=== PATIENT | female | born 1995 | race American Indian/Alaskan Native ===

== ENCOUNTER 2024-01-30 18:36 | Emergency (ER) | payer MEDICAID ==
[~2024-01-30] VITALS: Ht 154.9 cm; Wt 87.3 kg
[2024-01-30] MEDS ORDERED: THIAMINE HCL 100 MG,FOLIC ACID 1 MG,MULTIVITAMINS 10 ML in SODIUM CHLORIDE 0.9% 1,000 ML IV ONE (19:15)
[2024-01-30] MEDS ORDERED: ondansetron HCL 4 MG/2 ML VIAL IV ONE (19:15)
[2024-01-30] MEDS ORDERED: diazePAM 5 MG TAB PO ONE (19:15)
[2024-01-30] MEDS ORDERED: FOLIC ACID 1 MG/0.2 ML ML ONE (19:17)
[2024-01-30 19:23] LABS: BASOPHILS 3.5 % (0-2); EOSINOPHILS 2.5 % (0-6); HEMATOCRIT 38.4 % (35.0-50.0); LYMPHOCYTES 14.4 % (24-44); MCH 33.9 (27-36); MCHC 33.9 g/dl (30-36); MCV 99.8 fl (81-99); MONOCYTES 4.5 % (0-12); NEUTROPHILS 75.1 % (39-80); PLATELET COUNT 277 K/uL (140-440); RBC 3.85 M/ul (4.3-5.7); RDW 13.1 (10.5-15.0)
[2024-01-30 19:30] LABS: INR 0.96 (0.80-1.30); PROTIME 12.4 Sec (11.2-14.2)
[2024-01-30 19:39] LABS: ALBUMIN/GLOBULIN RATIO 0.89 (1.1-2.4); ANION GAP 17.5 (7-21); BUN/CREATININE RATIO 6.06 (6.0-28.6); CALCIUM 8.5 mg/dL (8.5-10.1); CREATININE, SERUM 0.66 mg/dL (0.55-1.02); MAGNESIUM 2.2 mg/dL (1.8-2.4); PHOSPHORUS, INORGANIC 3.4 mg/dL (2.5-4.9); POTASSIUM 3.5 mmol/L (3.5-5.1); PROTEIN, TOTAL 8.5 g/dL (6.4-8.2)
[2024-01-30] MEDS ORDERED: LORazepam 2 MG/ML VIAL IV ONE (20:45)
[2024-01-30] MEDS ORDERED: CHLORDIAZEPOXID25 MG PO (23:09)
[2024-01-31 00:42] VITALS: BP 117/79
== END 2024-01-31 00:42 | disposition home or self-care (01) ==
LOC: ED 18:36
PROVIDERS: Family Medicine
DX: F10.10 Alcohol abuse, uncomplicated (principal); Y90.8 Blood alcohol level of 240 mg/100 ml or more
CPT/HCPCS: 36415; 80053; 80307; 83735; 84100; 85025; 85610; 96374; 96375; 99284-25; G0480; J2060; J2405; J3411; J7030

== ENCOUNTER 2024-02-01 19:17 | Emergency (ER) | payer MEDICAID ==
[~2024-02-01] VITALS: Ht 154.9 cm; Wt 87.8 kg
[~2024-02-01 19:17] MED LIST: CHLORDIAZEPOXID25 MG PO
--- OUTSIDE RECORDS SUMMARY | 2024-02-01 19:26 | XMS ---
PreManage Notification: FANY [employer] Clinical Documentation Consultant Events No recent Security Events currently on file CRITERIA MET - [facility] - 2 Visits in 30 Days CARE PROVIDERS There are no care providers on record at this time. Fidelina has no Care Guidelines for this patient. Mark [facility] (12 MO.) [facility] NOTE: Visits indicate total known visits. ED/C VISIT TRACKING (12 MO.) [facility]24 19[facility] COMPLAINT: - ANXIETY 01/30/2024 18:[address] [facility] TYPE: Emergency COMPLAINT: - ALCOHOL WITHDRAWAL DIAGNOSES: - Alcohol abuse, uncomplicated - Auditory hallucinations - Blood alcohol level of 240 mg/100 ml or more INPATIENT VISIT TRACKING (12 MO.) No inpatient visits to display in this time frame [email or web address]
[2024-02-01] MEDS ORDERED: LORazepam 1 MG TAB PO ONE (20:30)
[2024-02-01 23:34] VITALS: BP 117/73
== END 2024-02-01 22:48 | disposition home or self-care (01) ==
LOC: ED 19:17
DX: F41.0 Panic disorder [episodic paroxysmal anxiety] (principal)
CPT/HCPCS: A9270-GY

== ENCOUNTER 2024-04-14 15:17 | Emergency (ER) | payer OTHER ==
[~2024-04-14] VITALS: Ht 154.9 cm; Wt 79.5 kg
[2024-04-14] MEDS ORDERED: MULTIVITAMINS 10 ML,FOLIC ACID 1 MG,THIAMINE HCL 100 MG in SODIUM CHLORIDE 0.9% 1,000 ML IV ONE (15:30)
[2024-04-14] MEDS ORDERED: LORazepam 2 MG/ML VIAL IV ONE (15:30)
[2024-04-14 15:42] LABS: BASOPHILS 0.5 % (0-2); EOSINOPHILS 0.4 % (0-6); HEMATOCRIT 35.5 % (35.0-50.0); HEMOGLOBIN 12.4 g/dL (12.0-18.0); LYMPHOCYTES 7.9 % (24-44); MCH 35.1 (27-36); MCHC 34.9 g/dl (30-36); MCV 100.6 fl (81-99); MONOCYTES 8.6 % (0-12); NEUTROPHILS 82.6 % (39-80); PLATELET COUNT 177 K/uL (140-440); RBC 3.52 M/ul (4.3-5.7); RDW 13.1 (10.5-15.0)
[2024-04-14 16:01] LABS: ALBUMIN 3.6 g/dL (3.4-5.0); ALBUMIN/GLOBULIN RATIO 0.77 (1.1-2.4); ALCOHOL, MEDICAL <3 ng/dL (<3); ALKALINE PHOSPHATASE 157 U/L (46-116); ALT (SGPT) 97 U/L (14-59); ANION GAP 15.7 (7-21); AST (SGOT) 180 U/L (15-37); BILIRUBIN, TOTAL 3.9 ng/dL (0.2-1.0); BUN/CREATININE RATIO 9.25 (6.0-28.6); CALCIUM 8.9 mg/dL (8.5-10.1); CARBON DIOXIDE 25 mmol/L (21-32); CHLORIDE 96 mmol/L (98-107); CREATININE, SERUM 0.54 mg/dL (0.55-1.02); GLOMERULAR FILTRATION RATE,EST 127 mL/min (>60); POTASSIUM 3.7 mmol/L (3.5-5.1); PROTEIN, TOTAL 8.3 g/dL (6.4-8.2); UREA NITROGEN 5 mg/dL (7-18)
[2024-04-14 17:18] VITALS: BP 118/82
== END 2024-04-14 17:18 | disposition home or self-care (01) ==
LOC: ED 15:17
PROVIDERS: Family Medicine
DX: E86.0 Dehydration (principal); F10.239 Alcohol dependence with withdrawal, unspecified
CPT/HCPCS: 36415; 80053; 80307; 83690; 83735; 84703; 85025; 96374; 96375; 99284-25; G0480; J2060; J3411; J7030